=== PATIENT | male | born 1965 | race Caucasian/White ===

== ENCOUNTER 2017-10-25 20:09 | Emergency (ER) | payer SELFPAY, OTHER ==
[2017-10-25] MEDS: LIDOCAINE 1% (MDV) 10 ML INJ INJ (21:55)
[2017-10-25] MEDS ORDERED: IBUPROFEN 800 MG TAB PO (21:55)
[2017-10-25] MEDS: DIPHTH/TET/ACEL PERTUSS (ADULT) 0.5 ML VIAL IM (22:07)
[2017-10-25] MEDS: IBUPROFEN 600 MG TAB PO (22:15)
[2017-10-26] MEDS: AMOXICILLIN/CLAV 875 MG TAB PO (03:17)
== END 2017-10-26 03:51 | disposition home or self-care (01) ==
LOC: FTE 10-26 03:51
DX: S61.411A Laceration without foreign body of right hand, initial encounter (principal); R40.2412 Glasgow coma scale score 13-15, at arrival to emergency department; W26.8XXA Contact with other sharp object(s), not elsewhere classified, initial encounter; Y92.9 Unspecified place or not applicable; Z23 Encounter for immunization
CPT/HCPCS: 12001; 73120-52; 73130-RT; 90471; 90715; 99283-25

== ENCOUNTER 2017-11-05 06:23 | Emergency (ER) | payer SELFPAY | END 2017-11-05 07:11 | disposition home or self-care (01) | LOC: FTE 06:23 | DX: Z48.02 Encounter for removal of sutures (principal) | CPT/HCPCS: 99281 ==